=== PATIENT | female | born 1955 | race Caucasian/White ===

== ENCOUNTER → 2016-07-26 | Outpatient (REF) | payer MEDICAID ==
[2016-07-26 16:25] LABS: FREE T4 0.69 NG/DL (0.76-1.46)
== END ==
LOC: M SFHCPLAZ 14:26
PROVIDERS: ATTEND Family Medicine
DX: M79.622 Pain in left upper arm (principal); M79.621 Pain in right upper arm; E03.9 Hypothyroidism, unspecified; F32.9 Major depressive disorder, single episode, unspecified

== ENCOUNTER 2024-04-23 09:18 | Inpatient (IN) | payer MEDICAID, MEDICARE ==
[~2024-04-23] VITALS: Ht 170.2 cm; Wt 57.7 kg
[2024-04-23 10:40] LABS: VENOUS HCO3 28.2 MMOL/L (23.0-27.0); VENOUS O2 SATURATION 65.3 % (60.0-80.0); VENOUS PARTIAL PRESSURE O2 36.9 mmHg (30.0-50.0); VENOUS PH 7.405 UNITS (7.330-7.430); VENOUS STANDARD HCO3 26.5 MMOL/L; VENOUS TOTAL CO2 29.6 MMOL/L (24.0-28.0)
[2024-04-23 10:44] LABS: HEMATOCRIT 28.3 % (36.0-47.0); HEMOGLOBIN 9.5 g/dl (12.0-15.5); LYMPH # 0.3 10^3/uL (1.5-5.0); LYMPH % 4.6 % (24.0-44.0); MEAN CORPUSCULAR HEMOGLOBIN 29.7 pg (27.0-33.0); MEAN CORPUSCULAR HGB CONC 33.6 g/dl (32.0-36.5); MEAN CORPUSCULAR VOLUME 88.4 fl (80.0-96.0); MONO # 0.2 10^3/uL (0.0-0.8); MONO % 2.7 % (2.0-8.0); NEUTROPHILS # 6.4 10^3/uL (1.5-8.5); NEUTROPHILS % 92.1 % (36.0-66.0); PLATELET COUNT, AUTOMATED 266 10^3/uL (150-450)
[2024-04-23 11:18] LABS: ETHYL ALCOHOL (ETHANOL) < 0.003 % (0.000-0.010)
[2024-04-23 11:20] LABS: SALICYLATE LEVEL < 3.0 MG/DL (<30)
[2024-04-23 11:24] LABS: CK-MB VALUE MASS 1.6 NG/ML (<3.6)
[2024-04-23 11:28] LABS: THYROID STIMULATING HORMONE 12.688 uIU/ML (0.55-4.78)
[2024-04-23 11:29] LABS: ALBUMIN 3.8 G/DL (3.2-5.2); ALKALINE PHOSPHATASE 91 U/L (35-104); ALT/SGPT 14 U/L (7.0-40); AST/SGOT 28 U/L (<34); BILIRUBIN,DIRECT 0.5 MG/DL (<0.4); BLOOD UREA NITROGEN 19 MG/DL (9-23); CALCIUM LEVEL 9.7 MG/DL (8.3-10.6); CARBON DIOXIDE LEVEL 28 MMOL/L (20-31); CHLORIDE LEVEL 98 MMOL/L (98-107); CPK CREATINE PHOSPHOKINASE 313 U/L (34-145); GLOMERULAR FILTRATION RATE > 60.0 (>45); GLUCOSE, FASTING 112 MG/DL (74-106); MAGNESIUM LEVEL 2.4 MG/DL (1.8-2.4); MB/CK RELATIVE INDEX 0.51 (< OR =4); POTASSIUM SERUM 2.4 MMOL/L (3.5-5.1); SODIUM LEVEL 140 MMOL/L (136-145); TOTAL PROTEIN 7.4 G/DL (5.7-8.2)
[2024-04-23] MEDS: POTASSIUM CHLORIDE 10MEQ SR TABLET PO ONE (11:39)
[2024-04-23 11:57] LABS: CK-MB VALUE MASS 1.4 NG/ML (<3.6); MB/CK RELATIVE INDEX 0.43 (< OR =4)
[2024-04-23] MEDS: KCL 10MEQ/100ML SWI (KRUN) 10 MEQ in IV 1 EA IV ONE (11:57)
[2024-04-23] MEDS ORDERED: VITA-259 PO (14:15)
[2024-04-23] MEDS ORDERED: HOME MED LIST COMPLETE! XX SCH (14:15)
[2024-04-23] MEDS ORDERED: ASPI325T57 PO (14:15)
[2024-04-23] MEDS: NS (Normal Saline) 0.9% 1,000 ML IV ONE (15:21)
[2024-04-23 15:33] LABS: FREE T4 0.13 NG/DL (0.89-1.76)
[2024-04-23 15:34] LABS: BLOOD UREA NITROGEN 19 MG/DL (9-23); CALCIUM LEVEL 9.8 MG/DL (8.3-10.6); CARBON DIOXIDE LEVEL 30 MMOL/L (20-31); CHLORIDE LEVEL 98 MMOL/L (98-107); CREATININE FOR GFR 0.76 MG/DL (0.55-1.30); GLOMERULAR FILTRATION RATE > 60.0 (>45); GLUCOSE, FASTING 88 MG/DL (74-106); POTASSIUM SERUM 2.7 MMOL/L (3.5-5.1); SODIUM LEVEL 140 MMOL/L (136-145)
[2024-04-23 15:38] LABS: PROCALCITONIN 0.17 ng/ml
[2024-04-23] MEDS: HYDROCORTISONE 100MG/2ML VIAL IV ONE (15:59)
[2024-04-23] MEDS: KCL 40MEQ in NS 1000ML 1,000 ML IV SCH (16:30)
[2024-04-23 18:19] LABS: KETONE, URINE AUTO RFX TRACE mg/dL (NEGATIVE); LEUKOCYTE ESTERASE UR AUTO RFX NEGATIVE (NEGATIVE); MUCUS, URINE RFX LARGE (NEGATIVE); NITRITE, URINE AUTO RFX NEGATIVE (NEGATIVE); RBC, URINE AUTO RFX 2 /HPF (0-3); SQUAM EPITHELIAL CELL UR AURFX 4 /HPF (0-6)
[2024-04-23] MEDS: LEVOTHYROXINE 100MCG (0.1MG) 5ML SDV PF (SOLUTION FORM) IV ONE (18:20)
[2024-04-23 18:21] LABS: WBC, URINE AUTO RFX 14 /HPF (0-3)
[2024-04-23 18:33] LABS: AMPHETAMINES LEVEL URINE NEGATIVE (NEGATIVE); BARBITURATES URINE NEGATIVE (NEGATIVE); BENZODIAZEPINES URINE NEGATIVE (NEGATIVE); CANNABINOIDS URINE NEGATIVE (NEGATIVE); COCAINE METABOLITE URINE NEGATIVE (NEGATIVE); METHADONE URINE NEGATIVE (NEGATIVE); OPIATES URINE NEGATIVE (NEGATIVE); PHENCYCLIDINE URINE NEGATIVE (NEGATIVE)
[2024-04-23 21:15] VITALS: BP 116/59; TEMP 97; O2SAT 95
[2024-04-23 23:53] VITALS: BP 108/56; TEMP 97.2; O2SAT 94
[2024-04-24 03:00] VITALS: BP 130/63; TEMP 97; O2SAT 95
[2024-04-24] MEDS: LEVOTHYROXINE 50MCG TABLET (0.05MG) PO SCH (05:18)
[2024-04-24 06:23] LABS: HEMATOCRIT 29.2 % (36.0-47.0); HEMOGLOBIN 9.5 g/dl (12.0-15.5); MEAN CORPUSCULAR HEMOGLOBIN 29.2 pg (27.0-33.0); MEAN CORPUSCULAR HGB CONC 32.5 g/dl (32.0-36.5); MEAN CORPUSCULAR VOLUME 89.8 fl (80.0-96.0); PLATELET COUNT, AUTOMATED 260 10^3/uL (150-450); RED BLOOD COUNT 3.25 10^6/uL (4.00-5.40); WHITE BLOOD COUNT 8.5 10^3/uL (4.0-10.0)
[2024-04-24 06:55] LABS: BLOOD UREA NITROGEN 14 MG/DL (9-23); CALCIUM LEVEL 9.2 MG/DL (8.3-10.6); CARBON DIOXIDE LEVEL 19 MMOL/L (20-31); CHLORIDE LEVEL 110 MMOL/L (98-107); CHOLESTEROL LEVEL 478 MG/DL (<200); CHOLESTEROL RISK RATIO 5.67 (<5); CREATININE FOR GFR 0.69 MG/DL (0.55-1.30); GLOMERULAR FILTRATION RATE > 60.0 (>45); GLUCOSE, FASTING 106 MG/DL (74-106); HDL CHOLESTEROL 84.2 MG/DL (>40); NON-HDL-C 393.8 MG/DL; POTASSIUM SERUM 3.9 MMOL/L (3.5-5.1); SODIUM LEVEL 144 MMOL/L (136-145); TRIGLYCERIDES LEVEL 174 MG/DL (<150)
[2024-04-24 06:57] VITALS: BP 142/65; TEMP 97; O2SAT 93
[2024-04-24 08:48] LABS: MB/CK RELATIVE INDEX 1.05 (< OR =4)
[2024-04-24] MEDS: ASPIRIN 325 MG TAB PO SCH (09:20)
[2024-04-24] MEDS: cefTRIAXone SOD 1 GM in DEXTROSE 5% (D5W) ADV/MINI-BAG 50 ML IV SCH (09:20)
[2024-04-24] MEDS: ENOXAPARIN 40MG/0.4ML SYRINGE (J1650 PER 10MG) SC SCH (09:21)
[2024-04-24 12:00] VITALS: BP 116/58; TEMP 97.4; O2SAT 91
[2024-04-24 14:25] LABS: ALBUMIN 3.5 G/DL (3.2-5.2); ALKALINE PHOSPHATASE 83 U/L (35-104); ALT/SGPT 12 U/L (7.0-40); AST/SGOT 19 U/L (<34); BILIRUBIN,TOTAL 0.5 MG/DL (0.3-1.2); BLOOD UREA NITROGEN 13 MG/DL (9-23); CALCIUM LEVEL 9.2 MG/DL (8.3-10.6); CARBON DIOXIDE LEVEL 24 MMOL/L (20-31); CHLORIDE LEVEL 106 MMOL/L (98-107); CREATININE FOR GFR 0.64 MG/DL (0.55-1.30); GLOMERULAR FILTRATION RATE > 60.0 (>45); GLUCOSE, FASTING 120 MG/DL (74-106); POTASSIUM SERUM 3.3 MMOL/L (3.5-5.1); SODIUM LEVEL 143 MMOL/L (136-145); TOTAL PROTEIN 6.5 G/DL (5.7-8.2)
[2024-04-24 15:43] VITALS: BP 120/56; TEMP 97.4; O2SAT 91
[2024-04-24] MEDS ORDERED: ISOVUE-370 76% 100ML VIAL As Ordered ONE (15:59)
[2024-04-24] MEDS: POTASSIUM CHLORIDE 10% LIQ 20MEQ/15ML UDC PO SCH (16:07)
[2024-04-24] MEDS: NS (Normal Saline) 0.9% 1,000 ML IV SCH (18:27)
[2024-04-24 20:03] VITALS: BP 115/57; TEMP 97.3; O2SAT 93
[2024-04-24] MEDS ORDERED: ENOXAPARIN 40MG/0.4ML SYRINGE (J1650 PER 10MG) SC SCH (21:00)
[2024-04-24] MEDS ORDERED: ENOXAPARIN 60MG/0.6ML SYRINGE (J1650 PER 10MG) SC SCH (21:00)
[2024-04-24] MEDS: CLOPIDOGREL 75 MG TAB PO SCH (21:23)
[2024-04-24 23:23] VITALS: BP 140/73; TEMP 97.4; O2SAT 91
[2024-04-25] VITALS (7 sets, daily range): BP systolic 100–166; BP diastolic 56–82; TEMP 96.9–97.4; O2SAT 92–97
[2024-04-25 06:01] LABS: HEMATOCRIT 27.8 % (36.0-47.0); HEMOGLOBIN 9.4 g/dl (12.0-15.5); MEAN CORPUSCULAR HEMOGLOBIN 29.7 pg (27.0-33.0); MEAN CORPUSCULAR HGB CONC 33.8 g/dl (32.0-36.5); MEAN CORPUSCULAR VOLUME 87.7 fl (80.0-96.0); PLATELET COUNT, AUTOMATED 238 10^3/uL (150-450); RED BLOOD COUNT 3.17 10^6/uL (4.00-5.40); WHITE BLOOD COUNT 7.6 10^3/uL (4.0-10.0)
[2024-04-25 06:31] LABS: PROCALCITONIN 0.15 ng/ml
[2024-04-25 06:39] LABS: ALBUMIN 3.5 G/DL (3.2-5.2); ALKALINE PHOSPHATASE 88 U/L (35-104); ALT/SGPT 11 U/L (7.0-40); AST/SGOT 18 U/L (<34); BILIRUBIN,TOTAL 0.5 MG/DL (0.3-1.2); BLOOD UREA NITROGEN 12 MG/DL (9-23); CALCIUM LEVEL 9.2 MG/DL (8.3-10.6); CARBON DIOXIDE LEVEL 27 MMOL/L (20-31); CHLORIDE LEVEL 104 MMOL/L (98-107); CREATININE FOR GFR 0.73 MG/DL (0.55-1.30); GLOMERULAR FILTRATION RATE > 60.0 (>45); GLUCOSE, FASTING 121 MG/DL (74-106); POTASSIUM SERUM 3.9 MMOL/L (3.5-5.1); SODIUM LEVEL 140 MMOL/L (136-145); TOTAL PROTEIN 7.1 G/DL (5.7-8.2)
[2024-04-25 07:18] LABS: HEMOGLOBIN A1c 5.5 % (4.0-6.0)
[2024-04-25] MEDS: CEFDINIR 300 MG CAP (OMNICEF) PO SCH (08:14)
[2024-04-25] MEDS: FUROSEMIDE 20MG/2ML VIAL IV ONE (08:15)
[2024-04-25] MEDS: ATORVASTATIN 20 MG TAB PO SCH (08:15)
[2024-04-25] MEDS: ENOXAPARIN 60MG/0.6ML SYRINGE (J1650 PER 10MG) SC SCH (08:15)
[2024-04-25] MEDS: ASPIRIN 81MG ENTERIC TABLET PO SCH (08:15)
[2024-04-25] MEDS ORDERED: ENOXAPARIN 40MG/0.4ML SYRINGE (J1650 PER 10MG) SC SCH (09:00)
[2024-04-26 03:21] VITALS: BP 136/73; TEMP 97.5; O2SAT 96
[2024-04-26 08:00] VITALS: BP 106/70; TEMP 97.7; O2SAT 98
[2024-04-26 08:21] LABS: HEMATOCRIT 25.2 % (36.0-47.0); HEMOGLOBIN 8.6 g/dl (12.0-15.5); MEAN CORPUSCULAR HEMOGLOBIN 29.9 pg (27.0-33.0); MEAN CORPUSCULAR HGB CONC 34.1 g/dl (32.0-36.5); MEAN CORPUSCULAR VOLUME 87.5 fl (80.0-96.0); PLATELET COUNT, AUTOMATED 213 10^3/uL (150-450); RED BLOOD COUNT 2.88 10^6/uL (4.00-5.40)
[2024-04-26 08:59] LABS: ALBUMIN 3.5 G/DL (3.2-5.2); ALKALINE PHOSPHATASE 85 U/L (35-104); ALT/SGPT < 9 U/L (7.0-40); AST/SGOT 17 U/L (<34); BILIRUBIN,TOTAL 0.5 MG/DL (0.3-1.2); BLOOD UREA NITROGEN 14 MG/DL (9-23); CALCIUM LEVEL 9.2 MG/DL (8.3-10.6); CARBON DIOXIDE LEVEL 30 MMOL/L (20-31); CHLORIDE LEVEL 102 MMOL/L (98-107); CREATININE FOR GFR 0.85 MG/DL (0.55-1.30); GLOMERULAR FILTRATION RATE > 60.0 (>45); GLUCOSE, FASTING 85 MG/DL (74-106); POTASSIUM SERUM 3.4 MMOL/L (3.5-5.1); SODIUM LEVEL 141 MMOL/L (136-145); TOTAL PROTEIN 6.4 G/DL (5.7-8.2)
[2024-04-26] MEDS: POTASSIUM CHLORIDE 10% LIQ 20MEQ/15ML UDC PO ONE (09:28)
[2024-04-26] MEDS: FUROSEMIDE 20 MG TAB PO SCH (09:28)
[2024-04-26] MEDS: ENOXAPARIN 40MG/0.4ML SYRINGE (J1650 PER 10MG) SC SCH (09:28)
[2024-04-26 12:00] VITALS: TEMP 96.2; O2SAT 97
[2024-04-26] MEDS: FLUBLOK(EGGFREE) TRIVAL(24-25) VACCINE PF 0.5ML SYRINGE 18YRS & OLDER IM.IMMUN ONE (14:26)
[2024-04-26 16:00] VITALS: BP 105/53; TEMP 96.5; O2SAT 98
[2024-04-26 20:01] VITALS: BP 95/50; TEMP 96.8; O2SAT 95
[2024-04-26 23:24] VITALS: BP 100/58; TEMP 96.7; O2SAT 97
[2024-04-27 04:12] VITALS: BP 135/68; TEMP 97.7; O2SAT 89
[2024-04-27 06:54] LABS: HEMATOCRIT 24.1 % (36.0-47.0); HEMOGLOBIN 8.2 g/dl (12.0-15.5); MEAN CORPUSCULAR HEMOGLOBIN 30.1 pg (27.0-33.0); MEAN CORPUSCULAR VOLUME 88.6 fl (80.0-96.0); PLATELET COUNT, AUTOMATED 187 10^3/uL (150-450); RED BLOOD COUNT 2.72 10^6/uL (4.00-5.40); WHITE BLOOD COUNT 3.9 10^3/uL (4.0-10.0)
[2024-04-27 07:23] LABS: ALBUMIN 3.2 G/DL (3.2-5.2); ALKALINE PHOSPHATASE 81 U/L (35-104); ALT/SGPT < 9 U/L (7.0-40); AST/SGOT 17 U/L (<34); BILIRUBIN,TOTAL 0.4 MG/DL (0.3-1.2); BLOOD UREA NITROGEN 18 MG/DL (9-23); CARBON DIOXIDE LEVEL 29 MMOL/L (20-31); CHLORIDE LEVEL 103 MMOL/L (98-107); CREATININE FOR GFR 0.86 MG/DL (0.55-1.30); GLOMERULAR FILTRATION RATE > 60.0 (>45); GLUCOSE, FASTING 90 MG/DL (74-106); POTASSIUM SERUM 3.4 MMOL/L (3.5-5.1); SODIUM LEVEL 140 MMOL/L (136-145); TOTAL PROTEIN 6.3 G/DL (5.7-8.2)
[2024-04-27 07:56] VITALS: BP 140/66; TEMP 97.1; O2SAT 96
[2024-04-27 08:03] LABS: TOTAL 25(OH) VITAMIN D 11.5 NG/ML (20.0-100.0)
[2024-04-27 11:53] VITALS: BP 123/59; TEMP 97.1; O2SAT 98
[2024-04-27] MEDS: ACETAMINOPHEN 325 MG TAB PO PRN (12:05)
[2024-04-27 15:55] VITALS: BP 117/58; TEMP 97.2; O2SAT 98
[2024-04-27 20:27] VITALS: BP 100/60; TEMP 96.8; O2SAT 8; O2SAT 98
[2024-04-27 23:55] VITALS: BP 112/60; TEMP 97.3; O2SAT 98
[2024-04-28 03:50] VITALS: BP 98/52; TEMP 96.6; O2SAT 97
[2024-04-28 07:45] VITALS: BP 129/60; TEMP 96.9; O2SAT 97
[2024-04-28 08:06] LABS: HEMATOCRIT 22.4 % (36.0-47.0); HEMOGLOBIN 7.5 g/dl (12.0-15.5); MEAN CORPUSCULAR HEMOGLOBIN 29.5 pg (27.0-33.0); MEAN CORPUSCULAR HGB CONC 33.5 g/dl (32.0-36.5); MEAN CORPUSCULAR VOLUME 88.2 fl (80.0-96.0); PLATELET COUNT, AUTOMATED 167 10^3/uL (150-450); RED BLOOD COUNT 2.54 10^6/uL (4.00-5.40); WHITE BLOOD COUNT 3.9 10^3/uL (4.0-10.0)
[2024-04-28 08:26] LABS: BLOOD UREA NITROGEN 22 MG/DL (9-23); CALCIUM LEVEL 8.7 MG/DL (8.3-10.6); CARBON DIOXIDE LEVEL 30 MMOL/L (20-31); CHLORIDE LEVEL 103 MMOL/L (98-107); GLOMERULAR FILTRATION RATE > 60.0 (>45); GLUCOSE, FASTING 92 MG/DL (74-106); MAGNESIUM LEVEL 1.6 MG/DL (1.8-2.4); POTASSIUM SERUM 3.7 MMOL/L (3.5-5.1); SODIUM LEVEL 140 MMOL/L (136-145)
[2024-04-28 11:50] VITALS: BP 125/58; TEMP 96.8; O2SAT 94
[2024-04-28 15:55] VITALS: BP 100/54; TEMP 96.8; O2SAT 100
[2024-04-28 19:52] VITALS: BP 90/66; TEMP 96.7; O2SAT 95
[2024-04-28 23:35] VITALS: BP 90/54; TEMP 97.3; O2SAT 95
[2024-04-29] VITALS (15 sets, daily range): BP systolic 94–140; BP diastolic 52–76; TEMP 97.2–99; O2SAT 91–100
[2024-04-29 05:55] LABS: PLATELET COUNT, AUTOMATED 151 10^3/uL (150-450); RED BLOOD COUNT 2.17 10^6/uL (4.00-5.40); WHITE BLOOD COUNT 3.8 10^3/uL (4.0-10.0)
[2024-04-29 06:13] LABS: HEMATOCRIT 19.1 % (36.0-47.0)
[2024-04-29 06:15] LABS: HEMOGLOBIN 6.5 g/dl (12.0-15.5)
[2024-04-29 06:24] LABS: BLOOD UREA NITROGEN 30 MG/DL (9-23); CARBON DIOXIDE LEVEL 30 MMOL/L (20-31); CHLORIDE LEVEL 101 MMOL/L (98-107); CREATININE FOR GFR 0.96 MG/DL (0.55-1.30); GLOMERULAR FILTRATION RATE > 60.0 (>45); GLUCOSE, FASTING 87 MG/DL (74-106); MAGNESIUM LEVEL 1.5 MG/DL (1.8-2.4); POTASSIUM SERUM 3.4 MMOL/L (3.5-5.1); SODIUM LEVEL 138 MMOL/L (136-145)
[2024-04-29] MEDS ORDERED: NS (Normal Saline) 0.9% 1,000 ML IV SCH (06:30)
[2024-04-29 09:19] LABS: PERCENT SATURATION 85.7 % (13.2-45.0)
[2024-04-29 09:21] LABS: FERRITIN 388.9 NG/ML (7.3-270.7)
[2024-04-29 09:27] LABS: FOLATE 1.73 NG/ML (>5.4)
[2024-04-29] MEDS: diphenhydrAMINE 25MG CAP PO ONE (09:57)
[2024-04-29] MEDS: ACETAMINOPHEN 325 MG TAB PO ONE (09:57)
[2024-04-29] MEDS: POTASSIUM CHLORIDE 10MEQ SR TABLET PO ONE (09:59)
[2024-04-29] MEDS: VITAMIN D 1,000 INTERNATIONAL UNITS TABLET PO SCH (11:44)
[2024-04-29] MEDS: FOLIC ACID 1MG TAB PO SCH (11:44)
[2024-04-29] MEDS: FUROSEMIDE 40MG/4ML VIAL IV ONE (13:09)
[2024-04-29 20:09] LABS: HEMATOCRIT 32.7 % (36.0-47.0); HEMOGLOBIN 11.3 g/dl (12.0-15.5)
[2024-04-30] VITALS (7 sets, daily range): BP systolic 78–120; BP diastolic 48–59; TEMP 96.9–97.8; O2SAT 95–99
[2024-04-30 07:07] LABS: PROTEIN, TOTAL SO 5.8 g/dL (6.1-8.1)
[2024-04-30 07:08] LABS: HEMATOCRIT 30.9 % (36.0-47.0); HEMOGLOBIN 10.6 g/dl (12.0-15.5); MEAN CORPUSCULAR HEMOGLOBIN 28.1 pg (27.0-33.0); MEAN CORPUSCULAR HGB CONC 34.3 g/dl (32.0-36.5); PLATELET COUNT, AUTOMATED 140 10^3/uL (150-450); RED BLOOD COUNT 3.77 10^6/uL (4.00-5.40); WHITE BLOOD COUNT 3.9 10^3/uL (4.0-10.0)
[2024-04-30 07:23] LABS: BLOOD UREA NITROGEN 34 MG/DL (9-23); CARBON DIOXIDE LEVEL 32 MMOL/L (20-31); CHLORIDE LEVEL 100 MMOL/L (98-107); CREATININE FOR GFR 0.86 MG/DL (0.55-1.30); GLOMERULAR FILTRATION RATE > 60.0 (>45); GLUCOSE, FASTING 83 MG/DL (74-106); MAGNESIUM LEVEL 1.7 MG/DL (1.8-2.4); POTASSIUM SERUM 3.5 MMOL/L (3.5-5.1); SODIUM LEVEL 139 MMOL/L (136-145)
[2024-04-30 11:36] LABS: HAPTOGLOBIN 191 mg/dL (43-212)
[2024-04-30 11:46] LABS: INR 0.95; PARTIAL THROMBOPLASTIN TIME 35.9 SECONDS (24.8-34.2)
[2024-04-30] MEDS: MULTIVITAMINS/MINERALS THERAP 1 TAB PO SCH (12:15)
[2024-04-30] MEDS: NITROFURANTOIN (MACROBID) 100 MG CAP PO SCH (12:15)
[2024-04-30 12:31] LABS: FREE LAMBDA LIGHT CHAINS SERUM 22.1 mg/L (5.7-26.3); KAPPA/LAMBDA RATIO SERUM 0.86 (0.26-1.65)
[2024-04-30] MEDS: NS (Normal Saline) 0.9% 1,000 ML IV ONE (23:41)
[2024-05-01] VITALS (8 sets, daily range): BP systolic 68–115; BP diastolic 40–60; TEMP 97.6–97.9; O2SAT 95–98
[2024-05-01] MEDS: NS (Normal Saline) 0.9% 1,000 ML IV ONE (19:56)
[2024-05-01] MEDS: MIDODRINE 5 MG TAB PO ONE (20:00)
[2024-05-02 03:22] VITALS: BP 131/61; TEMP 98.2; O2SAT 98
[2024-05-02 06:47] LABS: ALBUMIN SO 3.7 g/dL (3.8-4.8); ALPHA 1 GLOBULINS SO 0.3 g/dL (0.2-0.3); ALPHA 2 GLOBULINS SO 0.6 g/dL (0.5-0.9); BETA 2 GLOBULIN SO 0.3 g/dL (0.2-0.5); BETA GLOBULIN SO 0.3 g/dL (0.4-0.6); GAMMA GLOBULINS SO 0.5 g/dL (0.8-1.7)
[2024-05-02 07:36] VITALS: BP 98/52; TEMP 98.6; O2SAT 97
[2024-05-02 15:50] VITALS: BP 111/54; TEMP 97.4; O2SAT 98
[2024-05-02 19:46] VITALS: BP 114/60; TEMP 97.6; O2SAT 97
[2024-05-03] VITALS (16 sets, daily range): BP systolic 92–128; BP diastolic 51–88; TEMP 97–98.2; O2SAT 93–97
[2024-05-03 08:50] LABS: HEMOGLOBIN 7.8 g/dl (12.0-15.5); MEAN CORPUSCULAR HGB CONC 33.9 g/dl (32.0-36.5); MEAN CORPUSCULAR VOLUME 85.5 fl (80.0-96.0); PLATELET COUNT, AUTOMATED 158 10^3/uL (150-450); RED BLOOD COUNT 2.69 10^6/uL (4.00-5.40); WHITE BLOOD COUNT 6.7 10^3/uL (4.0-10.0)
[2024-05-03 09:23] LABS: ALBUMIN 3.5 G/DL (3.2-5.2); ALKALINE PHOSPHATASE 91 U/L (35-104); ALT/SGPT 20 U/L (7.0-40); AST/SGOT 32 U/L (<34); BILIRUBIN,TOTAL 0.4 MG/DL (0.3-1.2); BLOOD UREA NITROGEN 23 MG/DL (9-23); CALCIUM LEVEL 8.8 MG/DL (8.3-10.6); CARBON DIOXIDE LEVEL 30 MMOL/L (20-31); CHLORIDE LEVEL 101 MMOL/L (98-107); CREATININE FOR GFR 0.86 MG/DL (0.55-1.30); GLOMERULAR FILTRATION RATE > 60.0 (>45); GLUCOSE, FASTING 100 MG/DL (74-106); MAGNESIUM LEVEL 1.6 MG/DL (1.8-2.4); POTASSIUM SERUM 3.2 MMOL/L (3.5-5.1); SODIUM LEVEL 140 MMOL/L (136-145); TOTAL PROTEIN 6.2 G/DL (5.7-8.2)
[2024-05-03] MEDS: POTASSIUM CHLORIDE 10% LIQ 20MEQ/15ML UDC PO SCH (14:46)
[2024-05-03] MEDS: MAGNESIUM OXIDE 400MG TAB (MAG-OX) PO SCH (14:46)
[2024-05-04 04:15] VITALS: BP 123/68; TEMP 97.2; O2SAT 89; O2SAT 95
[2024-05-04] MEDS: LEVOTHYROXINE 88MCG TABLET (0.088 MG) PO SCH (05:08)
[2024-05-04 06:45] LABS: HEMATOCRIT 32.7 % (36.0-47.0); MEAN CORPUSCULAR HGB CONC 34.3 g/dl (32.0-36.5); MEAN CORPUSCULAR VOLUME 87.7 fl (80.0-96.0); PLATELET COUNT, AUTOMATED 170 10^3/uL (150-450); RED BLOOD COUNT 3.73 10^6/uL (4.00-5.40); WHITE BLOOD COUNT 8.1 10^3/uL (4.0-10.0)
[2024-05-04 06:51] LABS: HEMOGLOBIN 11.2 g/dl (12.0-15.5)
[2024-05-04 06:58] LABS: BLOOD UREA NITROGEN 24 MG/DL (9-23); CARBON DIOXIDE LEVEL 31 MMOL/L (20-31); CHLORIDE LEVEL 101 MMOL/L (98-107); CREATININE FOR GFR 0.84 MG/DL (0.55-1.30); GLOMERULAR FILTRATION RATE > 60.0 (>45); GLUCOSE, FASTING 95 MG/DL (74-106); MAGNESIUM LEVEL 2.1 MG/DL (1.8-2.4); POTASSIUM SERUM 3.3 MMOL/L (3.5-5.1); SODIUM LEVEL 139 MMOL/L (136-145)
[2024-05-04 12:13] VITALS: BP 125/67; TEMP 97.5; O2SAT 94
[2024-05-04] MEDS: POTASSIUM CHLORIDE 10MEQ SR TABLET PO ONE (14:38)
[2024-05-04 20:00] VITALS: BP 118/72; TEMP 97.7; O2SAT 95
[2024-05-05 04:00] VITALS: BP 128/66; TEMP 97.3; O2SAT 95
[2024-05-06 00:37] LABS: APPEARANCE, URINE CLEAR (CLEAR); BACTERIA, URINE AUTO NEGATIVE (NEGATIVE); BILIRUBIN, URINE AUTO NEGATIVE (NEGATIVE); BLOOD, URINE BLOOD NEGATIVE (NEGATIVE); COLOR, URINE STRAW (YELLOW); GLUCOSE, URINE (UA) AUTO NEGATIVE (NEGATIVE); KETONE, URINE AUTO NEGATIVE (NEGATIVE); LEUKOCYTE ESTERASE, URINE AUTO NEGATIVE (NEGATIVE); NITRITE, URINE AUTO NEGATIVE (NEGATIVE); PROTEIN, URINE AUTO NEGATIVE (NEGATIVE); RBC, URINE AUTO 2 /HPF (0-3); SPECIFIC GRAVITY URINE AUTO 1.008 (1.002-1.035); SQUAMOUS EPITHELIAL CELL UR AU 0 /HPF (0-6); UROBILINOGEN, URINE AUTO 0.2 mg/dL (0.0-2.0); WBC, URINE AUTO 0 /HPF (0-3)
[2024-05-06 04:00] VITALS: BP 119/62; TEMP 97.3; O2SAT 96
[2024-05-06 19:53] LABS: HEMATOCRIT 28.1 % (36.0-47.0); HEMOGLOBIN 9.5 g/dl (12.0-15.5); MEAN CORPUSCULAR HEMOGLOBIN 30.2 pg (27.0-33.0); MEAN CORPUSCULAR HGB CONC 33.8 g/dl (32.0-36.5); MEAN CORPUSCULAR VOLUME 89.2 fl (80.0-96.0); PLATELET COUNT, AUTOMATED 203 10^3/uL (150-450); RED BLOOD COUNT 3.15 10^6/uL (4.00-5.40); WHITE BLOOD COUNT 5.1 10^3/uL (4.0-10.0)
[2024-05-07 04:23] VITALS: BP 116/55; TEMP 97.3; O2SAT 93
[2024-05-08 05:25] VITALS: BP 110/64; TEMP 97.3; O2SAT 94
[2024-05-09 04:35] VITALS: BP 115/60; TEMP 97.3; O2SAT 93
[2024-05-09] MEDS: RAMELTEON 8 MG TAB (ROZEREM) PO ONE (23:28)
[2024-05-10 04:16] VITALS: BP 109/57; TEMP 97.2; O2SAT 96
[2024-05-10] MEDS: RAMELTEON 8 MG TAB (ROZEREM) PO PRN (20:37)
[2024-05-10] MEDS ORDERED: KETOROLAC 30 MG/ML 1ML VIAL IV ONE (22:30)
[2024-05-10] MEDS: diphenhydrAMINE 25MG CAP PO ONE (23:04)
[2024-05-10] MEDS: KETOROLAC TROMETHAMINE 10 MG TAB PO ONE (23:04)
[2024-05-11 04:00] VITALS: BP 101/57; TEMP 97; O2SAT 92
[2024-05-11 06:58] LABS: MEAN CORPUSCULAR HEMOGLOBIN 30.2 pg (27.0-33.0); MEAN CORPUSCULAR HGB CONC 32.3 g/dl (32.0-36.5); MEAN CORPUSCULAR VOLUME 93.7 fl (80.0-96.0); PLATELET COUNT, AUTOMATED 207 10^3/uL (150-450); RED BLOOD COUNT 2.05 10^6/uL (4.00-5.40); WHITE BLOOD COUNT 5.1 10^3/uL (4.0-10.0)
[2024-05-11 07:08] LABS: HEMATOCRIT 19.2 % (36.0-47.0); HEMOGLOBIN 6.2 g/dl (12.0-15.5)
[2024-05-11 07:48] LABS: BLOOD UREA NITROGEN 48 MG/DL (9-23); CARBON DIOXIDE LEVEL 28 MMOL/L (20-31); CHLORIDE LEVEL 103 MMOL/L (98-107); CREATININE FOR GFR 0.79 MG/DL (0.55-1.30); GLOMERULAR FILTRATION RATE > 60.0 (>45); GLUCOSE, FASTING 85 MG/DL (74-106); POTASSIUM SERUM 4.6 MMOL/L (3.5-5.1); SODIUM LEVEL 136 MMOL/L (136-145)
[2024-05-11 10:17] LABS: EOSINOPHILS 1 % (0-3); LYMPHOCYTES 17 % (16-44); MONOCYTES 9 % (0-5); NEUTROPHILS 72 % (28-66); PLATELET ESTIMATE NORMAL (NORMAL)
[2024-05-11 10:18] LABS: ANISOCYTOSIS 1+
[2024-05-11 10:19] LABS: HYPOCHROMASIA 1+
[2024-05-11 10:22] LABS: HELMET CELLS 1+
[2024-05-12] VITALS (13 sets, daily range): BP systolic 95–124; BP diastolic 40–66; TEMP 97–97.5; O2SAT 96–100
[2024-05-12 02:17] LABS: FERRITIN 353.1 NG/ML (7.3-270.7); FOLATE 16.78 NG/ML (>5.4)
[2024-05-12 07:41] LABS: BASO % 0.7 % (0.0-1.0); EOS # 0.1 10^3/uL (0.0-0.5); EOS % 0.9 % (0.0-3.0); HEMATOCRIT 22.6 % (36.0-47.0); HEMOGLOBIN 7.3 g/dl (12.0-15.5); LYMPH # 0.9 10^3/uL (1.5-5.0); LYMPH % 16.9 % (24.0-44.0); MEAN CORPUSCULAR HGB CONC 32.3 g/dl (32.0-36.5); MEAN CORPUSCULAR VOLUME 89.7 fl (80.0-96.0); MONO # 0.4 10^3/uL (0.0-0.8); MONO % 7.7 % (2.0-8.0); NEUTROPHILS % 72.2 % (36.0-66.0); PLATELET COUNT, AUTOMATED 198 10^3/uL (150-450); RED BLOOD COUNT 2.52 10^6/uL (4.00-5.40); WHITE BLOOD COUNT 5.6 10^3/uL (4.0-10.0)
[2024-05-12 08:38] LABS: MAGNESIUM LEVEL 2.7 MG/DL (1.8-2.4)
[2024-05-12] MEDS: FUROSEMIDE 40MG/4ML VIAL IV ONE (13:42)
[2024-05-13 05:10] VITALS: BP 111/52; TEMP 97.2
[2024-05-13] MEDS: VITAMIN B COMPLEX/VIT C CAP PO SCH (09:02)
[2024-05-13] MEDS: POTASSIUM CHLORIDE 10% LIQ 20MEQ/15ML UDC PO SCH (09:03)
[2024-05-13] MEDS: MAGNESIUM OXIDE 400MG TAB (MAG-OX) PO SCH (09:03)
[2024-05-13 18:45] LABS: MEAN CORPUSCULAR HGB CONC 34.1 g/dl (32.0-36.5); MEAN CORPUSCULAR VOLUME 88.1 fl (80.0-96.0); PLATELET COUNT, AUTOMATED 225 10^3/uL (150-450); WHITE BLOOD COUNT 6.1 10^3/uL (4.0-10.0)
[2024-05-13 18:49] LABS: HEMATOCRIT 27.3 % (36.0-47.0); HEMOGLOBIN 9.3 g/dl (12.0-15.5)
[2024-05-14 04:00] VITALS: BP 92/49; TEMP 97.2; O2SAT 98
[2024-05-15 04:00] VITALS: BP 118/59; TEMP 97.5; O2SAT 98
[2024-05-16 03:53] VITALS: BP 109/58; TEMP 97.2; O2SAT 97
[2024-05-16] MEDS: IBUPROFEN 600MG TAB PO PRN (21:03)
[2024-05-16 21:17] LABS: BASO % 0.5 % (0.0-1.0); EOS # 0.1 10^3/uL (0.0-0.5); EOS % 2.2 % (0.0-3.0); HEMATOCRIT 23.3 % (36.0-47.0); HEMOGLOBIN 7.6 g/dl (12.0-15.5); LYMPH # 1.6 10^3/uL (1.5-5.0); LYMPH % 28.2 % (24.0-44.0); MEAN CORPUSCULAR HEMOGLOBIN 30.8 pg (27.0-33.0); MEAN CORPUSCULAR HGB CONC 32.6 g/dl (32.0-36.5); MEAN CORPUSCULAR VOLUME 94.3 fl (80.0-96.0); MONO # 0.4 10^3/uL (0.0-0.8); MONO % 7.4 % (2.0-8.0); NEUTROPHILS # 3.4 10^3/uL (1.5-8.5); NEUTROPHILS % 60.3 % (36.0-66.0); PLATELET COUNT, AUTOMATED 245 10^3/uL (150-450); RED BLOOD COUNT 2.47 10^6/uL (4.00-5.40); WHITE BLOOD COUNT 5.6 10^3/uL (4.0-10.0)
[2024-05-16 21:46] LABS: ALBUMIN 2.7 G/DL (3.2-5.2); ALKALINE PHOSPHATASE 88 U/L (35-104); ALT/SGPT 33 U/L (7.0-40); AST/SGOT 35 U/L (<34); BILIRUBIN,TOTAL 0.3 MG/DL (0.3-1.2); BLOOD UREA NITROGEN 31 MG/DL (9-23); CALCIUM LEVEL 8.6 MG/DL (8.3-10.6); CARBON DIOXIDE LEVEL 28 MMOL/L (20-31); CHLORIDE LEVEL 106 MMOL/L (98-107); GLOMERULAR FILTRATION RATE > 60.0 (>45); GLUCOSE, FASTING 103 MG/DL (74-106); MAGNESIUM LEVEL 1.9 MG/DL (1.8-2.4); POTASSIUM SERUM 4.6 MMOL/L (3.5-5.1); SODIUM LEVEL 140 MMOL/L (136-145); TOTAL PROTEIN 5.3 G/DL (5.7-8.2)
[2024-05-17 03:09] VITALS: BP 117/62; TEMP 97.2; O2SAT 99
[2024-05-17 03:30] VITALS: BP 118/62; TEMP 97.2; O2SAT 98
[2024-05-17 04:00] VITALS: BP 122/61; TEMP 97.2; O2SAT 99
[2024-05-17 04:24] VITALS: BP 122/61; TEMP 97.2; O2SAT 99
[2024-05-17 06:16] VITALS: BP 115/58; TEMP 97.3; O2SAT 98
[2024-05-17 08:52] LABS: HEMATOCRIT 28.1 % (36.0-47.0); HEMOGLOBIN 9.2 g/dl (12.0-15.5)
[2024-05-17] MEDS: methocarbamoL 500 MG TAB PO PRN (08:59)
[2024-05-17 19:12] LABS: HEMATOCRIT 27.3 % (36.0-47.0); PLATELET COUNT, AUTOMATED 245 10^3/uL (150-450); WHITE BLOOD COUNT 6.2 10^3/uL (4.0-10.0)
[2024-05-17 19:38] LABS: BLOOD UREA NITROGEN 29 MG/DL (9-23); CALCIUM LEVEL 8.4 MG/DL (8.3-10.6); CARBON DIOXIDE LEVEL 27 MMOL/L (20-31); CHLORIDE LEVEL 105 MMOL/L (98-107); CREATININE FOR GFR 0.73 MG/DL (0.55-1.30); GLOMERULAR FILTRATION RATE > 60.0 (>45); GLUCOSE, FASTING 97 MG/DL (74-106); POTASSIUM SERUM 4.2 MMOL/L (3.5-5.1); SODIUM LEVEL 139 MMOL/L (136-145)
[2024-05-18 04:05] VITALS: BP 127/65; TEMP 97.3; O2SAT 97
[2024-05-19 04:25] VITALS: BP 96/52; TEMP 97.7; O2SAT 94
[2024-05-19] MEDS ORDERED: FOLI1TAB11 PO (07:29)
[2024-05-19] MEDS ORDERED: VITAD1000T PO (07:29)
[2024-05-19] MEDS ORDERED: CLOP75TA2 PO (07:29)
[2024-05-19] MEDS ORDERED: FURO20TA2 PO (07:29)
[2024-05-19] MEDS ORDERED: ASPI81TAEC PO (07:29)
[2024-05-19] MEDS ORDERED: SYNT88TA2 PO (07:29)
[2024-05-19] MEDS ORDERED: B-CO1TAB14 PO (07:29)
[2024-05-19] MEDS ORDERED: ATOR1TAB21 PO (07:29)
[2024-05-19] MEDS ORDERED: ACET32TAB PO (07:29)
[2024-05-19] MEDS ORDERED: POTA10CA70 PO (07:30)
[2024-05-19] MEDS ORDERED: RAME8TAB2 PO (07:30)
[2024-05-19 08:10] LABS: HEMATOCRIT 28.1 % (36.0-47.0); MEAN CORPUSCULAR HEMOGLOBIN 29.3 pg (27.0-33.0); MEAN CORPUSCULAR VOLUME 91.5 fl (80.0-96.0); PLATELET COUNT, AUTOMATED 273 10^3/uL (150-450); RED BLOOD COUNT 3.07 10^6/uL (4.00-5.40); WHITE BLOOD COUNT 5.9 10^3/uL (4.0-10.0)
[2024-05-19] MEDS ORDERED: PANT40TA29 PO (11:04)
== END 2024-05-19 12:25 | disposition other institution (70) | DRG 643 ==
LOC: EDBD 09:18 → M ED 09:18 → M ED INP 13:29 → M PCU 21:11 → M MS5PR 05-03 22:15
PROVIDERS: ADMIT Internal Medicine; ATTEND Student in an Organized Health Care Education/Training Program
PROC: B246ZZZ Ultrasonography of Right and Left Heart (ICD-10-PCS; 2024-04-24)
PROC: 30233N1 Transfusion of Nonautologous Red Blood Cells into Peripheral Vein, Percutaneous Approach (ICD-10-PCS; principal; 2024-04-29)
DX: E03.8 Other specified hypothyroidism (principal); J18.9 Pneumonia, unspecified organism; I24.89 Other forms of acute ischemic heart disease; N39.0 Urinary tract infection, site not specified; E87.6 Hypokalemia; R29.6 Repeated falls; I25.10 Atherosclerotic heart disease of native coronary artery without angina pectoris; E78.5 Hyperlipidemia, unspecified; I65.22 Occlusion and stenosis of left carotid artery; D63.8 Anemia in other chronic diseases classified elsewhere; L89.152 Pressure ulcer of sacral region, stage 2; R62.7 Adult failure to thrive; I65.02 Occlusion and stenosis of left vertebral artery; R23.3 Spontaneous ecchymoses; M41.9 Scoliosis, unspecified; F39 Unspecified mood [affective] disorder; D50.9 Iron deficiency anemia, unspecified; I95.9 Hypotension, unspecified; E83.42 Hypomagnesemia; R13.10 Dysphagia, unspecified; R47.81 Slurred speech; Z79.82 Long term (current) use of aspirin; Z95.5 Presence of coronary angioplasty implant and graft; Z95.2 Presence of prosthetic heart valve; Z92.3 Personal history of irradiation